=== PATIENT | female | born 1960 | race Caucasian/White ===

== ENCOUNTER → 2017-11-26 | Outpatient (CLI) | payer MEDICARE, MEDICAID ==
[~2017-11-26] MED LIST: FLEC100T PO; LAMO100T5 PO; LEVO75TA PO; METO-95 PO; MORP30TA3 PO; OXYC-302 PO; RISP0.253 PO
[2017-11-26 14:57] LABS: BASOPHILS # (AUTO) 0.03 x10^3/uL (0-0.1); BASOPHILS % (AUTO) 0 % (0-1); EOSINOPHILS % (AUTO) 3 % (1-7); LYMPHOCYTES # (AUTO) 1.68 x10^3/uL (1-3.4); LYMPHOCYTES % (AUTO) 22 % (22-44); MD NO; MEAN CORPUSCULAR HEMOGLOBIN 33.2 pg (27.0-34.8); MEAN CORPUSCULAR HGB CONC 33.5 g/dL (32.4-35.8); MEAN CORPUSCULAR VOLUME 99.1 fL (80-100); MEAN PLATELET VOLUME 9.5 fL (7.4-10.4); MONOCYTES # (AUTO) 0.39 x10^3/uL (0.2-0.8); MONOCYTES % (AUTO) 5 % (2-9); NEUTROPHILS # (AUTO) 5.25 x10^3/uL (1.8-6.8); NEUTROPHILS % (AUTO) 70 % (42-75); PLATELET COUNT 225 x10^3/uL (130-400); RED BLOOD COUNT 3.84 x10^6/uL (3.82-5.3); RED CELL DISTRIBUTION WIDTH 13.3 % (9.6-15.2)
[2017-11-26 15:09] LABS: ALANINE AMINOTRANSFERASE 20 U/L (12-78); ALBUMIN 3.9 g/dL (3.4-5.0); ANION GAP 5 mmol/L (5-15); CALCIUM 9.1 mg/dL (8.5-10.1); CHLORIDE 104 mmol/L (98-107); CREATININE 0.94 mg/dL (0.55-1.02)
[2017-11-26 15:12] LABS: ALKALINE PHOSPHATASE 85 U/L (45-117); BILIRUBIN,TOTAL 0.4 mg/dL (0.2-1.0); TOTAL PROTEIN 8.1 g/dL (6.4-8.2)
[2017-11-26 15:22] LABS: HEMOGLOBIN A1C 5.5 % (4.2-6.3)
[2017-11-26 15:24] LABS: INTERNATIONAL NORMALIZED RATIO 0.97 (0.93-1.1)
== END | disposition home or self-care (01) ==
LOC: STAR 13:50
PROVIDERS: ATTEND Orthopaedic Surgery
DX: Z01.818 Encounter for other preprocedural examination (principal); M16.11 Unilateral primary osteoarthritis, right hip; M25.551 Pain in right hip; R00.1 Bradycardia, unspecified
CPT/HCPCS: 36415; 80053; 83036; 85025; 85610; 85730; 87081; 93005

== ENCOUNTER 2017-12-03 06:49 | Inpatient (IN) | payer MEDICARE, MEDICAID ==
[~2017-12-03] VITALS: Ht 149.9 cm; Wt 65.0 kg
[2017-12-03] MEDS ORDERED: PROPOFOL 10 MG/ML, 20ML ONE (06:57)
[2017-12-03] MEDS ORDERED: ROCURONIUM 10MG/ML,5ML ONE (06:57)
[2017-12-03] MEDS ORDERED: DEXAMETHASONE 4 MG/ML, 1ML ONE ×2 (06:57)
[2017-12-03] MEDS ORDERED: FENTANYL PF 100 MCG/2ML ONE ×2 (06:57→09:57)
[2017-12-03] MEDS ORDERED: MIDAZOLAM 1 MG/ML, 2ML ONE (06:57)
[2017-12-03] MEDS ORDERED: SUCCINYLCHOLINE 20 MG/ML, 10ML ONE (06:57)
[2017-12-03] MEDS ORDERED: LIDOCAINE-MPF 2% ,5ML ONE (06:58)
[2017-12-03] MEDS ORDERED: CEFAZOLIN 1,000 MG ONE ×2 (06:58)
[2017-12-03 07:05] VITALS: BP 146/89
[2017-12-03] MEDS ORDERED: LACTATED RINGERS 1,000 ML IV SCH (07:17)
[2017-12-03] MEDS ORDERED: ROPIvacaine/PF 0.5%, 30 ML ONE (07:22)
[2017-12-03] MEDS ORDERED: EPINEPHRINE 1 MG/ML, 1ML ONE (07:22)
[2017-12-03] MEDS ORDERED: TRANEXAMIC ACID 100 MG/ML, 10ML ONE (07:22)
[2017-12-03] MEDS ORDERED: VANCOMYCIN 1,000 MG ONE (07:22)
[2017-12-03] MEDS ORDERED: KETOROLAC 60 MG/2 ML ONE (07:22)
[2017-12-03] MEDS ORDERED: MIDAZOLAM 1 MG/ML, 2ML IV PRN (07:30)
[2017-12-03] MEDS ORDERED: ALBUTEROL SULFATE 2.5 MG/3 ML NPPB PRN (07:30)
[2017-12-03] MEDS ORDERED: HYDROmorphone 2 MG/ML, 1ML IV PRN (07:30)
[2017-12-03] MEDS ORDERED: LORazepam 2 MG/ML, 1ML IVPush PRN (07:30)
[2017-12-03] MEDS ORDERED: GABAPENTIN 300 MG CAPSULE PO ONE (07:30)
[2017-12-03] MEDS ORDERED: hydrALAzine 20 MG/ML, 1ML IV PRN (07:30)
[2017-12-03] MEDS ORDERED: ACETAMINOPHEN 500 MG TABLET PO ONE (07:30)
[2017-12-03] MEDS ORDERED: DIPHENHYDRAMINE 25 MG CAPSULE PO PRN (07:30)
[2017-12-03] MEDS ORDERED: OXYcodone 5 MG/5 ML ORAL.SOL UDC PO PRN (07:30)
[2017-12-03] MEDS ORDERED: ACETAMINOPHEN 650 MG/20.3 ML UDC PO PRN (07:30)
[2017-12-03] MEDS ORDERED: SENNA/DOCUSATE TABLET PO PRN (07:30)
[2017-12-03] MEDS ORDERED: ONDANSETRON 4 MG TABLET PO PRN (07:30)
[2017-12-03] MEDS ORDERED: ONDANSETRON 2MG/ML, 2ML IV PRN (07:30)
[2017-12-03] MEDS ORDERED: MAGNESIUM HYDROXIDE 8%, 30ML UDC PO PRN (07:30)
[2017-12-03] MEDS ORDERED: LABETALOL 5MG/ML, 20ML IV PRN (07:30)
[2017-12-03] MEDS ORDERED: SCOPOLAMINE PATCH, 1.5MG PATCH.TD72 TD PRN ×2 (07:30)
[2017-12-03] MEDS ORDERED: BISACODYL 10 MG SUPP PR PRN (07:30)
[2017-12-03] MEDS ORDERED: MEPERIDINE/PF 25MG/0.5ML IVPush PRN (07:30)
[2017-12-03] MEDS ORDERED: METOPROLOL 1 MG/ML, 5ML IV PRN (07:30)
[2017-12-03] MEDS ORDERED: OXYcodone IR 5MG TABLET PO PRN (07:30)
[2017-12-03] MEDS ORDERED: LIDOCAINE-MPF 1%, 2ML ONE (07:35)
[2017-12-03] MEDS ORDERED: SUGAMMADEX 200 MG/2 ML IVPush ONE (07:40)
[2017-12-03] MEDS ORDERED: GLYCOPYRROLATE 0.2MG/1ML, 5ML ONE (08:36)
[2017-12-03] MEDS ORDERED: ONDANSETRON 2MG/ML, 2ML ONE (08:36)
[2017-12-03] MEDS ORDERED: EPHEDRINE 50 MG/ML, 1ML ONE (08:36)
[2017-12-03] MEDS ORDERED: OXYcodone 5 MG/5 ML ORAL.SOL UDC ONE (09:57)
[2017-12-03] MEDS ORDERED: morphine SULFATE 10 MG/ML, 1ML ONE (09:57)
[2017-12-03] MEDS: MORPHINE SULFATE 4 MG/ML, 1ML IVPush PRN ×3 (10:07→10:46)
[2017-12-03] MEDS: FENTANYL PF 100 MCG/2ML IV PRN ×2 (10:15→10:25)
[2017-12-03] MEDS ORDERED: TRANEXAMIC ACID 1,000 MG in SODIUM CHLORIDE 0.9% 100 ML IV ONE (10:30)
[2017-12-03] MEDS ORDERED: CEFAZOLIN PMX 2GM/50ML 50 ML IVPB SCH (12:00)
[2017-12-03] MEDS: LAMOTRIGINE 100 MG TABLET PO SCH ×2 (12:10→21:36)
[2017-12-03] MEDS: HYDROcodone/APAP 5/325 TABLET PO PRN (12:11)
[2017-12-03] MEDS: NS + 20MEQ KCL 1,000 ML IV SCH (12:12)
[2017-12-03 13:22] VITALS: BP 96/66
[2017-12-03] MEDS ORDERED: LACTATED RINGERS 1,000 ML IVBOLUS ONE (16:00)
[2017-12-03] MEDS: CEFAZOLIN PMX 2GM/50ML 50 ML IVPB SCH (17:03)
[2017-12-03] MEDS: ASPIRIN 81 MG TABLET EC PO SCH (17:03)
[2017-12-03 19:26] VITALS: BP 82/56
[2017-12-03] MEDS: METOPROLOL SUCCINATE 100 MG TAB.ER.24H PO SCH ×2 (21:00→21:35)
[2017-12-03] MEDS ORDERED: ZOLPIDEM 5MG TABLET PO PRN (21:00)
[2017-12-03] MEDS: DOCUSATE 100 MG CAPSULE PO SCH (21:35)
[2017-12-03] MEDS: FLECAINIDE 100MG TABLET PO SCH (21:36)
[2017-12-03 21:39] VITALS: BP 91/57
[2017-12-04 01:15] VITALS: BP 97/51
[2017-12-04] MEDS: CEFAZOLIN PMX 2GM/50ML 50 ML IVPB SCH (01:23)
[2017-12-04] MEDS: NS + 20MEQ KCL 1,000 ML IV SCH (02:00)
[2017-12-04 03:52] VITALS: BP 91/59
[2017-12-04] MEDS: HYDROcodone/APAP 5/325 TABLET PO PRN ×2 (03:52→12:23)
[2017-12-04] MEDS ORDERED: LEVOTHYROXINE 75 MCG TABLET PO SCH (06:00)
[2017-12-04] MEDS ORDERED: DEXAMETHASONE 4 MG/ML, 1ML IVPush SCH (06:00)
[2017-12-04] MEDS: ASPIRIN 81 MG TABLET EC PO SCH (06:10)
[2017-12-04] MEDS: FLECAINIDE 100MG TABLET PO SCH (07:15)
[2017-12-04] MEDS: DOCUSATE 100 MG CAPSULE PO SCH (07:26)
[2017-12-04] MEDS: LAMOTRIGINE 100 MG TABLET PO SCH (07:26)
[2017-12-04] MEDS ORDERED: OXYC5TAB3 PO (09:05)
[2017-12-04] MEDS ORDERED: MELO7.5T31 PO (09:06)
[2017-12-04] MEDS ORDERED: TRAM50TA2 PO (09:06)
[2017-12-04 09:44] VITALS: BP 95/59
== END 2017-12-04 12:55 | disposition home or self-care (01) | DRG 470 ==
LOC: ORIP 06:49 → 4NOR 10:55
PROVIDERS: ADMIT Orthopaedic Surgery; ATTEND Orthopaedic Surgery
PROC: 0SR906A Replacement of Right Hip Joint with Oxidized Zirconium on Polyethylene Synthetic Substitute, Uncemented, Open Approach (ICD-10-PCS; principal; 2017-12-03 08:45)
DX: M16.11 Unilateral primary osteoarthritis, right hip (principal); M17.12 Unilateral primary osteoarthritis, left knee; E03.9 Hypothyroidism, unspecified; F32.9 Major depressive disorder, single episode, unspecified; I48.91 Unspecified atrial fibrillation; Z88.5 Allergy status to narcotic agent
CPT/HCPCS: 36415; 72170; 76001; 85014; 85018; C1713; G0378; J0171; J0690; J1100; J1885; J2250; J2405; J2704; J2795; J3010; J3370; J3480; J3490; C1776; J0330; J7120

== ENCOUNTER 2018-08-09 19:26 | Emergency (ER) | payer MEDICARE, MEDICAID ==
[~2018-08-09] VITALS: Ht 152.4 cm; Wt 65.0 kg
[~2018-08-09 19:26] MED LIST changes: +MELO7.5T31 PO; +OXYC5TAB3 PO; +TRAM50TA2 PO
[2018-08-09] MEDS ORDERED: PROMETHAZINE 25 MG/ML, 1ML ONE (20:16)
[2018-08-09] MEDS ORDERED: HYDROmorphone 2 MG/ML, 1ML ONE (20:16)
--- NOTE | 2018-08-09 20:24 | NUR ---
PT MEDICATED PER APR. MONITORS IN PLACE, CALL LIGHT WITHIN REACH, AWAITING LAB AND CT RESULTS
[2018-08-09 20:27] LABS: BASOPHILS # (AUTO) 0.06 x10^3/uL (0-0.1); BASOPHILS % (AUTO) 1 % (0-1); EOSINOPHILS # (AUTO) 0.19 x10^3/uL (0-0.4); EOSINOPHILS % (AUTO) 2 % (1-7); LYMPHOCYTES # (AUTO) 1.72 x10^3/uL (1-3.4); LYMPHOCYTES % (AUTO) 14 % (22-44); MD NO; MEAN CORPUSCULAR HEMOGLOBIN 33.5 pg (27.0-34.8); MEAN CORPUSCULAR HGB CONC 33.5 g/dL (32.4-35.8); MEAN CORPUSCULAR VOLUME 99.8 fL (80-100); MEAN PLATELET VOLUME 9.8 fL (7.4-10.4); MONOCYTES # (AUTO) 0.36 x10^3/uL (0.2-0.8); MONOCYTES % (AUTO) 3 % (2-9); NEUTROPHILS # (AUTO) 9.73 x10^3/uL (1.8-6.8); NEUTROPHILS % (AUTO) 81 % (42-75); PLATELET COUNT 226 x10^3/uL (130-400); RED BLOOD COUNT 4.26 x10^6/uL (3.82-5.3); RED CELL DISTRIBUTION WIDTH 13.2 % (9.6-15.2)
--- NOTE | 2018-08-09 20:29 | NUR ---
CT PENDING LAB/CREATINE.
[2018-08-09] MEDS ORDERED: HYDROmorphone 2 MG/ML, 1ML IVPush PRN (20:30)
[2018-08-09] MEDS ORDERED: SODIUM CHLORIDE FLUSH 10ML SYR IVF ONE (20:30)
[2018-08-09] MEDS ORDERED: PROMETHAZINE 25 MG/ML, 1ML IM ONE (20:30)
[2018-08-09 20:39] LABS: ALANINE AMINOTRANSFERASE 18 U/L (12-78); ALBUMIN 4.5 g/dL (3.4-5.0); ANION GAP 9 mmol/L (5-15); CHLORIDE 102 mmol/L (98-107); CREATININE 1.27 mg/dL (0.55-1.02)
[2018-08-09 20:41] LABS: ALKALINE PHOSPHATASE 74 U/L (45-117); BILIRUBIN,TOTAL 0.5 mg/dL (0.2-1.0); TOTAL PROTEIN 8.1 g/dL (6.4-8.2)
--- NOTE | 2018-08-09 20:53 | NUR ---
URINE SAMPLE TAKEN TO LAB
[2018-08-09 21:07] LABS: MICROSCOPIC AUTO
[2018-08-09 21:09] LABS: CULTURE INDICATED? NO
[2018-08-09] MEDS ORDERED: OMNIPAQUE 350 MG/ML, 100ML BOTTLE ONE (21:14)
[2018-08-09 21:33] VITALS: BP 121/58
--- NOTE | 2018-08-09 21:34 | NUR ---
PT RESTING ON GURNEY, PROVIDED PT WITH WARM BLANKET, DENIES FURTHER NEEDS, MONITORS IN PLACE, CALL LIGHT WITHIN REACH. AWAITING CT RESULT
== END 2018-08-09 22:28 | disposition home or self-care (01) ==
LOC: ED 22:05
DX: R10.84 Generalized abdominal pain (principal); K59.00 Constipation, unspecified; I48.91 Unspecified atrial fibrillation; E03.9 Hypothyroidism, unspecified; F31.9 Bipolar disorder, unspecified; G89.29 Other chronic pain; Z90.89 Acquired absence of other organs
CPT/HCPCS: 36415; 74177; 80053; 81001; 83605; 83690; 85025; 93005; 96372; 96374; 99284; J1170; J2550; Q9967

== ENCOUNTER → 2019-06-08 | Outpatient (CLI) | payer MEDICARE, MEDICAID ==
[~2019-06-08] MED LIST changes: +MORP-30 PO; -MORP30TA3 PO
== END | disposition home or self-care (01) ==
LOC: CFH 14:53
PROVIDERS: ATTEND Internal Medicine Cardiovascular Disease
DX: I35.8 Other nonrheumatic aortic valve disorders (principal); I48.0 Paroxysmal atrial fibrillation; I10 Essential (primary) hypertension
CPT/HCPCS: 93306

== ENCOUNTER → 2019-10-24 | Outpatient (CLI) | payer MEDICARE, MEDICAID | END | disposition home or self-care (01) | LOC: CFH 11:41 | PROVIDERS: ATTEND Physician Assistant Surgical | DX: M43.22 Fusion of spine, cervical region (principal); M48.02 Spinal stenosis, cervical region; M50.30 Other cervical disc degeneration, unspecified cervical region | CPT/HCPCS: 72082 ==

== ENCOUNTER → 2019-10-31 | Outpatient (CLI) | payer MEDICAID, MEDICARE | END | disposition home or self-care (01) | LOC: RAD 10:58 | PROVIDERS: ATTEND Physician Assistant Surgical | DX: M47.812 Spondylosis without myelopathy or radiculopathy, cervical region (principal); M48.02 Spinal stenosis, cervical region; M19.012 Primary osteoarthritis, left shoulder; M19.011 Primary osteoarthritis, right shoulder; M47.815 Spondylosis without myelopathy or radiculopathy, thoracolumbar region; Z96.641 Presence of right artificial hip joint | CPT/HCPCS: 72082 ==

== ENCOUNTER → 2019-11-02 | Outpatient (CLI) | payer MEDICARE, MEDICAID | END | disposition home or self-care (01) | LOC: CFH 12:42 | PROVIDERS: ATTEND Nurse Practitioner Family | DX: Z01.810 Encounter for preprocedural cardiovascular examination (principal); I48.0 Paroxysmal atrial fibrillation; I10 Essential (primary) hypertension; I25.89 Other forms of chronic ischemic heart disease | CPT/HCPCS: 78452; 93017; A9502; J2785 ==

== ENCOUNTER 2020-03-01 16:31 | Outpatient (CLI) | payer MEDICARE, MEDICAID ==
[~2020-03-01 16:31] MED LIST changes: -OXYC-302 PO; +OXYC1TAB14 PO; -OXYC5TAB3 PO; +OXYC5TAB98 PO
== END 2020-03-01 23:59 | disposition home or self-care (01) ==
LOC: RAD 16:31
PROVIDERS: ATTEND Physician Assistant Surgical
DX: M50.31 Other cervical disc degeneration, high cervical region (principal); Z98.1 Arthrodesis status
CPT/HCPCS: 72040